=== PATIENT | female | born 1980 | race Caucasian/White ===

== ENCOUNTER 2021-08-10 06:23 | Day surgery (SDC) | payer SELFPAY ==
[2021-08-03 16:48] VITALS: BMI 24.9
[2021-08-10] MEDS ORDERED: HEPARIN NA (PORCINE) 5,000 UNITS/ML 1ML VIAL ONE (07:44)
[2021-08-10] MEDS ORDERED: SCOPOLAMINE HYDROBROMIDE 1 PATCH PATCH.TD72 ONE (07:44)
[2021-08-10] MEDS ORDERED: PROPOFOL 20 ML ONE ×7 (07:46→11:38)
[2021-08-10] MEDS ORDERED: SUCCINYLCHOLINE CHLORIDE 200 MG/10 ML SYRINGE ONE (07:46)
[2021-08-10] MEDS ORDERED: fentaNYL CITRATE 250 MCG/5 ML VIAL ONE (07:46)
[2021-08-10] MEDS ORDERED: DEXAMETHASONE SOD PHOSPHATE 4 MG/1 ML VIAL ONE (07:46)
[2021-08-10] MEDS ORDERED: ONDANSETRON 4 MG/2 ML VIAL ONE (07:46)
[2021-08-10] MEDS ORDERED: LIDOCAINE HCL 2% JELLY (5 ML/TUBE) ONE (07:46)
[2021-08-10] MEDS ORDERED: BUPIVACAINE HCL/PF 2.5 MG/ML - 30 ML VIAL IJ ONE (07:47)
[2021-08-10] MEDS ORDERED: MIDAZOLAM HCL 2 MG/2 ML SINGLE DOSE VIAL ONE (07:47)
[2021-08-10] MEDS ORDERED: LIDOCAINE HCL 1%, 10 MG/ML (20ML VIAL) ONE (07:47)
[2021-08-10] MEDS ORDERED: EPINEPHrine/PF 1 MG/1 ML (1:1,000) AMPULE ONE (07:47)
[2021-08-10] MEDS ORDERED: ROCURONIUM BROMIDE 50 MG/5 ML SYRINGE ONE ×2 (07:47→09:11)
[2021-08-10] MEDS ORDERED: BACITRACIN 15 GM TUBE TOPICAL OINTMENT ONE (07:48)
[2021-08-10] MEDS ORDERED: BUPIVACAINE HCL/PF 0.25% (2.5MG/ML) 10 ML VIAL ONE (08:00)
[2021-08-10] MEDS ORDERED: BUPIVACAINE LIPOSOME/PF (EXPAREL) 266 MG/20 ML VIAL ONE (08:02)
[2021-08-10] MEDS ORDERED: POVIDONE-IODINE 5% OPHTHALMIC PREP 30 ML SOLUTION ONE (09:26)
[2021-08-10] MEDS ORDERED: HYDROmorphone HCL/PF 1 MG/ML VIAL ONE ×2 (10:54)
[2021-08-10] MEDS ORDERED: PROMETHAZINE HCL 25 MG/1 ML VIAL IVPUSH PRN (12:28)
[2021-08-10] MEDS ORDERED: ONDANSETRON 4 MG/2 ML VIAL IVPUSH PRN (12:28)
[2021-08-10] MEDS ORDERED: oxyCODONE HCL 5 MG TABLET PO PRN ×2 (12:28)
[2021-08-10] MEDS ORDERED: MORPHINE SULFATE 2 MG/ML VIAL IVPUSH PRN (12:34)
[2021-08-10] MEDS ORDERED: LACTATED RINGERS SOLUTION 1,000 ML IV SCH (12:45)
[2021-08-10] MEDS: CEFAZOLIN 1 GM/D5W 1 GM/50 ML BAG IVPB SCH ×2 (15:48→21:14)
[2021-08-10] MEDS: oxyCODONE HCL 5 MG TABLET PO PRN ×2 (15:48→21:14)
[2021-08-10] MEDS: ONDANSETRON 4 MG/2 ML VIAL IVPB PRN ×2 (15:50→21:18)
[2021-08-11] MEDS: CEFAZOLIN 1 GM/D5W 1 GM/50 ML BAG IVPB SCH ×2 (03:12→08:01)
[2021-08-11] MEDS: oxyCODONE HCL 5 MG TABLET PO PRN (06:36)
[2021-08-11] MEDS ORDERED: HEPARIN NA (PORCINE) 5,000 UNITS/ML 1ML VIAL SQ SCH (08:00)
[2021-08-11 09:00] VITALS: BP 107/64; PULSE 68; TEMP 98.7
[2021-08-11] MEDS ORDERED: SERTRALINE HCL 25 MG TABLET (FP) PO SCH (10:00)
[2021-08-11] MEDS ORDERED: PANTOPRAZOLE 40 MG TABLET PO SCH (10:00)
[2021-08-11] MEDS ORDERED: MESALAMINE 800 MG TABLET.DR PO SCH (10:00)
== END 2021-08-11 08:35 | disposition home or self-care (01) ==
LOC: FASU 06:23 → FM/S 14:02 → FASU 08-11 08:35
PROVIDERS: ATTEND Plastic Surgery
PROC: 0J080ZZ Alteration of Abdomen Subcutaneous Tissue and Fascia, Open Approach (ICD-10-PCS; principal; 2021-08-10 08:41)
PROC: 0J083ZZ Alteration of Abdomen Subcutaneous Tissue and Fascia, Percutaneous Approach (ICD-10-PCS; 2021-08-10 08:41)
DX: Z41.1 Encounter for cosmetic surgery (principal); M62.08 Separation of muscle (nontraumatic), other site; M95.8 Other specified acquired deformities of musculoskeletal system
CPT/HCPCS: 84703; 94760; J1644